=== PATIENT | male | born 1935 | race Caucasian/White ===

== ENCOUNTER → 2019-03-03 12:58 | Outpatient (CLI) | payer MEDICARE ==
--- NOTE | 2019-03-05 13:17 | EC ---
PATIENT:GENNA KC DATE OF SERVICE: 03/03/19 SEX: M MEDICAL RECORD: [id number] DATE OF : 35 LOCATION:D[facility] AGE OF PATIENT: 83 ADMISSION DATE: 03/03/19 REFERRING PHYSICIAN: INTERPRETING PHYSICIAN: SHAY AREVALO MD ECHOCARDIOGRAM REPORT ECHO CHARGES 4 ECHO COMPLETE Date: 03/03/19 CLINICAL DIAGNOSIS: A-FIB H/O HTN ECHOCARDIOGRAPHIC MEASUREMENTS (adult normal given) AC root (d.<3.7cm) 3.6 cm LV Septum d (<1.2 cm> 1.2 cm Valve Excursion 1.2 cm LV Septum (systole) 1.6 cm Left Atria (s.<4.0cm> 4.9 cm LVPW d(<1.2cm) 1.4 cm RV (d.<2.3cm) 2.4 cm LVPW (sytole) 1.8 cm LV diastole(<5.6CM) 5.2 cm MV E-F(>70mm/sec) cm LV systole 3.7 cm LVOT Diameter 2.1 cm MV exc.(>10mm) cm Est.ejection fraction (50-75%) % DOPPLER: LVIT cm/sec A cm/sec E 118 cm/sec LA cm/sec RVSP 25.0 mmHg LVOT 100 cm/sec AOP1/2T m/s Asc. Ao 161 cm/sec RVOT 90.0 cm/sec RA cm/sec PA 134 cm/sec AV Gradient Peak 10.3 mmHg AV Mean 4.4 mmHg AV Area 1.7 cm MV Gradient Peak 6.2 mmHg MV Mean 2.6 mmHg MV Area cm COMMENTS: OP - HC Photo Technician: 1 MAXIME MOREJONOE Collections Assistant: 3 Dr. Haq TAPE# PACS Pericardial Effusion N DATE OF SERVICE: Adequate 2D, color flow, spectral Doppler, and M-mode. LVH is present. LV internal dimensions are normal. LV is mildly globally hypo with an overall mildly reduced EF, estimated EF 40% to 45%. Aortic valve sclerosis without evidence of stenosis on Doppler interrogation. Left atrium is mildly dilated at 4.9 cm. Mitral valve shows no prolapse. Mild plus MR. Right-sided chambers grossly normal. Mild TR. TRANSINT:[id number] Voice Confirmation ID: [id number] DOCUMENT ID: [id number] ECHOCARDIOGRAM REPORT [id number] GENNA KC GREGORY A MD at 1317 CC: [id number] DICTATION DATE: 03/04/19 1323 SUPERVISOR SOLDER MAKING: 03/04/19 1545 DEP CLI 03/03/19 [place] [id number] [place] [id number]
== END | disposition home or self-care (01) ==
LOC: D.HCCARDIO 12:58
PROVIDERS: ATTEND Internal Medicine Interventional Cardiology
DX: I48.91 Unspecified atrial fibrillation (principal)